=== PATIENT | female | born 1930 | race Caucasian/White ===

== ENCOUNTER 2016-08-16 07:26 | Emergency (ER) | payer OTHER ==
[~2016-08-16 07:26] MED LIST: AMIODARONE HCL200 MG; AMIODARONE HCL200 MG PO; ANT12.5 PO; B COMPLEX PO; COL100 PO; CRANBERRY400 M2 PO; CRANBERRY450 M1 PO; DEB AU; DIO160 PO; DIOVAN160 MG; DIOVAN160 MG PO; DUL5 PO; FER300 PO; GLUCOSAMINE500 MG PO; LAC PO; LASIX40 MG PO; LEVAQUIN250 MG PO; MAGNESIUM OXID400 MG PO; OMEPRAZOLE DR20 M1 PO; PAROXETINE HCL20 M1 PO; PYR100 PO; VALSARTAN AND H1 TA3 PO; VIT B-6100 M1 PO; VITAMIN C1000 M2 PO; VITC PO; ZETIA10 M1 PO; [UNRECOGNIZED DRUG - OTHER] PO
[2016-08-16 09:03] VITALS: BP 110/40
== END 2016-08-16 09:03 | disposition home or self-care (01) ==
LOC: ED 07:26
DX: R53.1 Weakness (principal); I10 Essential (primary) hypertension; M46.82 Other specified inflammatory spondylopathies, cervical region